=== PATIENT | female | born 1940 | race Caucasian/White ===

== ENCOUNTER 2016-10-26 11:21 | Inpatient (IN) ==
[2016-10-26] MEDS ORDERED: ONDANSETRON 4 MG/2 ML VIAL IV STA (11:57)
[2016-10-26] MEDS ORDERED: MORPHINE 2 MG/1 ML SYRINGE IV STA (11:57)
[2016-10-26] MEDS ORDERED: SODIUM CHLORIDE 0.9% 1,000 ML IV STA (11:57)
--- NOTE | 2016-10-26 12:06 | Emergency Department Note ---
Arrival - Arrival Chief Complaint: Abdominal / Flank Pain Stated Complaint: pancreatitis ED Nursing Triage Note: C/o abd pain radiating through to back-onset 0830 this morning. +nausea. Denies vomiting/diarrhea. Reports pain is similar to episodes of pancreatitis that she has in the past. Mode of Arrival: Ambulatory Limitations: No Limitations Source: Patient, Family, Old Records Reviewed, RN Notes Reviewed Time Seen by Provider: 10/26/16 11:44 - History of Present Illness HPI Narrative: - History of Present Illness 76-year-old white female presents to ED with CC of: Pancreatitis, abdominal pain , nausea, x since 8:30 AM Fever: no Keeping fluids down: Ate breakfast without difficulty, has not had any intake since symptoms started Normal urine output: yes PCP: Dr. Back PMHx: HTN, chronic pancreatitis, history of breast cancer Date of Last Menstrual Period: hysterectomy Allergies/Adverse Reactions: Allergies Allergy/AdvReac Type Severity Reaction Status Date / Time codeine Allergy Unknown/Unable Verified 08/19/16 13:51 to obtain Hydromorphone [From Dilaudid] Allergy UNRESPONSIV Verified 08/19/16 13:51 E levofloxacin Allergy Unknown/Unable Verified 08/19/16 13:51 to obtain meperidine [From Demerol] Allergy UNRESPONSIV Verified 08/19/16 13:51 E Penicillins Allergy Unknown/Unable Verified 08/19/16 13:51 to obtain promethazine [From Phenergan] Allergy UNRESPONSIV Verified 08/19/16 13:51 E Home Medications: Home Medications Medication Instructions Recorded Confirmed Type Lipase/Protease/Amylase [Creon 1 capsule PO TID W/MEALS 09/08/15 10/26/16 History 24,000 Units] Omeprazole 20 mg PO QPM 09/08/15 10/26/16 History Indapamide [Lozol] 1.25 mg PO DAILY 10/26/16 10/26/16 History Review of System - Review of System 12 point system: reviewed and no additional remarkable complaints except as stated - Review of System Gastrointestinal: Present: as per HPI, abdominal pain, nausea. Absent: hematemesis, melena, hematochezia Medical,Surgical,& Family Hx - Medical History Cardio: History of: Hypertension HEENT: History of: Eye Problem (cataracts) Gastrointestinal: History of: Pancreatitis Reproductive: History of: Breast Cancer (left mastectomy) - Surgical History Abdominal Surgeries: Surgical HX of: Abdominal Surgery (pancreatic pseudocyst drained), Cholecystectomy Reproductive Surgeries: Surgical HX of;: Hysterectomy - Family History Family History: Denies;: Family Anesthesia Reaction, Family Cancer, Family Diabetes, Family Heart Disease, Family Hypertension, Family Psychiatric Problems, Family Stroke - Social History Smoking Status: Never smoker Frequency of Alcohol Use: None Type of Drug Use: None Exam Physical Examination: - General General appearance: alert, in no apparent distress - HEENT Present: atraumatic, normocephalic, normal inspection, PERRL, EOMI, mucous membranes moist - Neck Neck exam: Present: normal inspection, full ROM - Respiratory Respiratory exam: Present: normal lung sounds bilaterally - Cardiovascular Cardiovascular exam: Present: regular rate, normal rhythm, normal heart sounds - Abdominal Exam Abdominal exam: Present: soft, tenderness: Yes; LUQ, mild to moderate, normal bowel sounds. Absent: distention, guarding, trauma, - Back Exam Back exam: Present: normal inspection, tenderness to left upper back - Neurological Exam Neurological exam: Present: alert, oriented X3, no neuorosensory deficits - Psychiatric Psychiatric exam: Present: normal affect, normal mood - Skin Skin exam: Present: warm, dry, intact Vital Signs: Vital Signs Temperature 98.1 F 10/26/16 15:35 Pulse Rate 74 10/26/16 15:35 Respiratory Rate 18 10/26/16 15:35 Blood Pressure 152/68 10/26/16 15:35 O2 Sat by Pulse Oximetry 100 10/26/16 15:35 Course - Consultations Time: 13:00 (Dr. Brown; Dr. Quijano will manage the patient.) Time: 13:05 (Hospitalist service notified of pt presence and status. Will come and assess patient.) Time: 13:30 (Hospitalist service here to assess patient. Will admit.) Results - Labs CBC & BMP: 10/26/16 12:01 10/26/16 12:01 Lab Results: I have reviewed the patients labs Labs: Laboratory Tests 10/26/16 12:01 Urine Color Yellow Urine Appearance Slightly hazy Urine pH 5.0 Ur Specific [place] 1.016 Urine Protein Negative Urine Glucose (UA) Negative Urine Ketones Negative Urine Blood Negative Urine Nitrate Negative Urine Bilirubin Negative Urine Urobilinogen < 2.0 H Urine Leukocytes Negative Urine RBC 3 Urine WBC <1 Hyaline Casts 2 Urine Mucus Occasional Ur Culture Indicated? Not indicated Laboratory Tests 10/26/16 12:01 AST 30 ALT 32 Alkaline Phosphatase 61 Lipase 95929.0 H Disposition Clinical Impression: Acute on chronic pancreatitis, Hypokalemia, Pancreatitis, acute Case discussed with: patient, patient's physician Disposition: Still a Patient Condition: Stable Time of Disposition: 13:30
[2016-10-26] MEDS ORDERED: ONDANSETRON 4 MG/2 ML VIAL ONE (12:07)
[2016-10-26] MEDS ORDERED: MORPHINE 2 MG/1 ML SYRINGE ONE (12:07)
[2016-10-26 12:14] LABS: Basophils % 0.1 % (0.0-0.8); Eosinophils % 0.2 % (0.00-10.9); Hematocrit 38.4 VOL% (35.7-47.0); Hemoglobin 13.2 GM/DL (12.0-16.0); Immature Granulocytes % 0.4 %; Immature Granulocytes Absolute 0.06 #; Lymphocytes # 0.9 10*3/uL (1.4-4.0); Mean Corpuscular HGB Conc 34.4 GM/DL (32-36); Mean Corpuscular Hemoglobin 32 PG (27-34); Mean Corpuscular Volume 92.1 FL (87-102); Mean Platelet Volume 10.2 FL (9.6-12.0); Monocytes # 0.4 10*3/uL (0.11-0.8); Monocytes % 2.8 % (1.7-12.7); Neutrophils % 90.5 % (38.7-73.9); Platelet Count 223 T/CUMM (130-400); Red Blood Count 4.17 MC/CUMM (3.8-5.5); Red Cell Distribution Width 12.1 % (9.3-17.3); White Blood Count 14.4 T/CUMM (4-12)
[2016-10-26 12:18] LABS: Apearance,Urine Slightly Hazy (Clear); Bilirubin,Urine Negative (Negative); Blood, Urine Negative (Negative); Glucose,Urine (UA) Negative (Negative); Hyaline Casts,Urine 2 /LPF (0-3); Ketones,Urine Negative (Negative); Mucus,Urine Occasional /LPF (Occasional); Nitrite,Urine Negative (Negative); Protein,Urine Negative; RBC,Urine 3 /HPF (0-4); Urine Color Yellow (Yellow); Urine Specific Gravity 1.016 (1.001-1.035); Urine Urobilinogen < 2.0 EU/DL (0.2-1.0); WBC,Urine <1 /HPF (0-6)
[2016-10-26 12:44] LABS: Albumin 3.9 G/DL (3.4-5.0); Bilirubin,Total 0.4 MG/DL (0.2-1.0); Calcium 9.7 MG/DL (8.5-10.1); Osmolality,Calculated 280.7 MOS/KG (273-304); Potassium 3.3 MMOL/L (3.5-5.1); Total Protein 7.1 G/DL (6.4-8.3)
--- NOTE | 2016-10-26 13:43 | Hospitalist History & Physical ---
<Irina Pritchett - Last Filed: 10/26/16 13:35> Assessment and Plan - Time spent with patient Time spent with patient: Greater than 30 minutes (1) Acute on chronic pancreatitis Status: Acute Assessment and plan: 10/26/16 admit for episode of acute on chronic pancreatitis Amylase 1998 and Lipase 96693.0; order a.m. labs; NPO for bowel rest; IV fluids; pain management ; and nausea medications for management; continue home meds. Current Visit: No (2) Hypokalemia Status: Acute Current Visit: No History of Present Illness Chief complaint: abdominal pain History of present illness: Ms. Herrera is a very pleasant 76 year old white female presenting to Non-Urgent for upper abdominal pain (rate 6/10) that started this morning at 8:30 with associated nausea without vomiting and radiating to her back. 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 Medical hx: Hypertension; Breast cancer; cataracts; family hx: mother HTN; father: HTN, DM; Sister: HTN & DM; Surgical HX; hysterectomy; left breast mastectomy; cholecystectomy; removal of tumor of pancreas; hysterectomy; Multiple allergies: phenergan; codeine; levaquin; codeine; dilaudid; demerol; Never smoked, denies alcohol use. NOn-urgent presentation Labs:WBC 14.4 H&H 13.2 & 38.4; PLT 223; sodium 138; K 3.3; chloride 99; carbon dioxide 32; anion gap 10.3; BUN 21 and creatinine 0.80; glucose 152; CAlcium 9.7; total bilirubin 0.40; AST 30; ALT 32 ; Alkaline phos 61; albumin 3.9; Amylase 1998; Lipase 30881.0; urine negative After discussing with Keshia Ellison in non-urgent care and Dr Mane in Hospitalist medicine; it is in agreement patient will need to be admit and further evaluated. Home Medications Medication Instructions Recorded Confirmed Type Lipase/Protease/Amylase [Creon 1 capsule PO TID W/MEALS 09/08/15 10/26/16 History 24,000 Units] Omeprazole 20 mg PO QPM 09/08/15 10/26/16 History Indapamide [Lozol] 1.25 mg PO DAILY 06/29/17 06/29/17 History Allergies Allergy/AdvReac Type Severity Reaction Status Date / Time codeine Allergy Unknown/Unable Verified 08/19/16 13:51 to obtain Hydromorphone [From Dilaudid] Allergy UNRESPONSIV Verified 08/19/16 13:51 E levofloxacin Allergy Unknown/Unable Verified 08/19/16 13:51 to obtain meperidine [From Demerol] Allergy UNRESPONSIV Verified 08/19/16 13:51 E Penicillins Allergy Unknown/Unable Verified 08/19/16 13:51 to obtain promethazine [From Phenergan] Allergy UNRESPONSIV Verified 08/19/16 13:51 E Medical,Surgical,& Family Hx - Medical History Cardio: History of: Hypertension HEENT: History of: Eye Problem (cataracts) Gastrointestinal: History of: Pancreatitis (Hx: surgical pancreatic tumor removal with develop chronic pancreatitis) Reproductive: History of: Breast Cancer (left mastectomy) - Surgical History Abdominal Surgeries: Surgical HX of: Abdominal Surgery (pancreatic pseudocyst drained), Cholecystectomy Reproductive Surgeries: Surgical HX of;: Hysterectomy - Family History Family History: Denies;: Family Anesthesia Reaction, Family Cancer, Family Diabetes, Family Heart Disease, Family Hypertension, Family Psychiatric Problems, Family Stroke - Social History Smoking Status: Never smoker Frequency of Alcohol Use: None Type of Drug Use: None Review of systems: ROS completed and pertinent positives and negatives in the HPI. Exam - Constitutional Vitals: Period Temp Pulse Resp BP Sys/Jimenez Pulse Ox Last 24 Hr 97.5 F 72 18 166/69 100 General appearance: normal weight - Head Head exam: Present: normal inspection - Eye Eye exam: Present: EOMI Pupils: Present: YI - Neck Neck exam: Present: normal inspection - Respiratory Respiratory exam: Present: clear to auscultation bilaterally - Cardiovascular Cardiovascular exam: Present: regular rate and rhythm - GI/Abdominal GI/Abdominal exam: Present: hypoactive bowel sounds, tenderness (some tenderness with palpitation), soft. Absent: guarding - Extremities Exam Extremities exam: Present: full ROM. Absent: calf tenderness, edema - Neurological Exam Neurological exam: Present: alert, oriented X3, CN II-XII intact - Psychiatric Psychiatric exam: Present: normal affect - Skin Skin exam: Present: normal color, warm, dry Results - Labs CBC & BMP: 10/26/16 12:01 10/26/16 12:01 Lab Results: I have reviewed the past 24 hour labs Labs: WBC 14.4 H&H 13.2 & 38.4 K 3.3 BUN 21 and creatinine 0.80 Amylase 1999 Lipase 47085.0 urine - negative <Izaiah Mane - Last Filed: 10/26/16 14:38> Assessment and Plan (1) Pancreatitis, acute Status: Acute Assessment and plan: Impression: 1. Acute pancreatitis 2. Hypertension Plan: IV fluids and GI rest. The patient probably does not need imaging, as the diagnosis seems obvious. If she does not progress as expected, we might consider imaging and/or GI consultation. For now, I think we can continue current care. She says that she usually requires 2 or 3 days in the hospital, and is then well enough to go home. This note was completed using [employer] voice recognition software. There may be dental laboratory worker errors as a result. Current Visit: Yes Qualifiers: Pancreatitis type: other Acute pancreatitis complication: no infection or necrosis Qualified Code(s): K85.80 - Other acute pancreatitis without necrosis or infection History of Present Illness History of present illness: Ms. 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 She says that the symptoms did not improve, and she does not have any stents in the pancreas currently. She reports that she would have 8 or so episodes of pancreatitis every year, and then she went for about a year and a half with no episodes of pancreatitis until a recurrence about 2 months ago. She says that there are no known precipitating or exacerbating events. She says that she had been working out in her yard for the past 3 days, and then had the typical onset of abdominal pain this morning. She knew what was wrong, so she came to the emergency room. She is now admitted for yet another episode of acute intermittent pancreatitis. She reports that she has had good urine output today. Her bowels move this morning. Exam - Constitutional Vitals: Period Temp Pulse Resp BP Sys/Jimenez Pulse Ox Last 24 Hr 97.5 F-97.7 F 72-75 18-20 166-182/69-69 97-100 Results - Labs CBC & BMP: 10/26/16 12:01 10/26/16 12:01
[2016-10-26] MEDS ORDERED: MORPHINE 2 MG/1 ML SYRINGE IV PRN (13:57)
[2016-10-26] MEDS ORDERED: ONDANSETRON 4 MG/2 ML VIAL IV PRN (13:57)
[2016-10-26] MEDS: SODIUM CHLORIDE 0.9% 1,000 ML IV SCH ×2 (14:44→23:04)
[2016-10-27] MEDS: SODIUM CHLORIDE 0.9% 1,000 ML IV SCH (06:25)
[2016-10-27 06:37] LABS: Basophils % 0.1 % (0.0-0.8); Eosinophils # 0.1 10*3/uL (0.0-0.87); Eosinophils % 1.9 % (0.00-10.9); Hematocrit 32.9 VOL% (35.7-47.0); Hemoglobin 11.1 GM/DL (12.0-16.0); Immature Granulocytes % 0.4 %; Immature Granulocytes Absolute 0.03 #; Lymphocytes # 0.7 10*3/uL (1.4-4.0); Lymphocytes % 9.8 % (21.3-54.2); Mean Corpuscular HGB Conc 33.7 GM/DL (32-36); Mean Corpuscular Hemoglobin 31 PG (27-34); Mean Corpuscular Volume 91.6 FL (87-102); Mean Platelet Volume 10.7 FL (9.6-12.0); Monocytes # 0.4 10*3/uL (0.11-0.8); Monocytes % 5.5 % (1.7-12.7); Neutrophils # 5.7 10*3/uL (1.4-7.4); Neutrophils % 82.3 % (38.7-73.9); Platelet Count 169 T/CUMM (130-400); Red Blood Count 3.59 MC/CUMM (3.8-5.5); Red Cell Distribution Width 12.1 % (9.3-17.3); White Blood Count 6.9 T/CUMM (4-12)
[2016-10-27 07:07] LABS: Bilirubin,Total 0.5 MG/DL (0.2-1.0); Calcium 8.5 MG/DL (8.5-10.1); Osmolality,Calculated 280.1 MOS/KG (273-304); Potassium 3.2 MMOL/L (3.5-5.1); Total Protein 5.5 G/DL (6.4-8.3)
[2016-10-27] MEDS ORDERED: POTASSIUM CHLORIDE RIDER 10 MEQ in PREMIX 1 EACH IV PRN (07:30)
--- NOTE | 2016-10-27 08:24 | Hospitalist Progress Note ---
Assessment and Plan (1) Acute on chronic pancreatitis Status: Acute Assessment and plan: Noted decrease in lipase. Lipase noted today at 4344; noted decrease from admission in which he was noted at 23,297. We will continue fluid replacement, pain management, and bowel rest. Will recheck labs in a.m. Current Visit: Yes (2) Hypokalemia Status: Acute Assessment and plan: Potassium noted at 3.2. We will replace and recheck in a.m. Current Visit: Yes Hospitalist: Subjective Interval history: Patient seen and examined; chart reviewed. No significant overnight events reported. Noted decrease in lipase; lipase noted at 4344 significant improvement from; 23,297 noted at admission. Exam - Constitutional Vitals: Period Temp Pulse Resp BP Sys/Jimenez Pulse Ox Last 24 Hr 97.4 F-98.2 F 63-75 18-20 124-182/62-69 96-100 General appearance: normal weight, no acute distress - Head Head exam: Present: normal inspection, normocephalic - Eye Eye exam: Present: EOMI, conjunctival injection Pupils: Present: YI, normal accommodation - ENT ENT exam: Present: normal exam, normal external ear exam, normal oropharynx - Neck Neck exam: Present: normal inspection. Absent: lymphadenopathy, meningismus, thyromegaly - Respiratory Respiratory exam: Present: clear to auscultation bilaterally. Absent: rales, rhonchi, stridor, wheezes - Cardiovascular Cardiovascular exam: Present: regular rate and rhythm. Absent: carotid bruit, diastolic murmur, gallop, JVD, rubs, systolic murmur - GI/Abdominal GI/Abdominal exam: Present: normal bowel sounds, soft. Absent: tenderness, rebound - Extremities Exam Extremities exam: Present: normal inspection, normal capillary refill, full ROM. Absent: edema - Back Exam Back exam: Present: normal inspection - Neurological Exam Neurological exam: Present: alert, oriented X3, CN II-XII intact - Psychiatric Psychiatric exam: Present: normal affect, normal mood - Skin Skin exam: Present: normal color, warm, dry Results - Labs CBC & BMP: 10/27/16 05:50 10/27/16 05:50 Lab Results: I have reviewed the past 24 hour labs
[2016-10-27 08:56] VITALS: BP 150/66
[2016-10-27] MEDS ORDERED: PANTOPRAZOLE 40 MG VIAL IV SCH (09:00)
[2016-10-27] MEDS: POTASSIUM CHLORIDE 20 MEQ TABLET PO PRN ×2 (09:44→11:53)
--- NOTE | 2016-10-27 11:51 | Discharge Summary ---
Hospital Course - Hospital Course Hospital Course: Ms. 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 She said that the symptoms did not improve, and she does not have any stents in the pancreas currently. She reported that she would have 8 or so episodes of pancreatitis every year, and then she went for about a year and a half with no episodes of pancreatitis until a recurrence about 2 months ago. She said that there are no known precipitating or exacerbating events. She said that she had been working out in her yard for the past 3 days, and then had the typical onset of abdominal pain this morning. She knew what was wrong, so she came to the emergency room. She was admitted to the hospitalist service for acute on chronic pancreatitis. She was started on IV fluids with pain control. This morning the patient is doing much better, her lipase has improved from 07967 to 4344. She is tolerating liquids and is very eager for discharge. She has now reached maximal benefit of inpatient stay and will be discharged home. - Time spent with patient Time with patient DS: Less than 30 minutes (25) Diagnosis - Discharge Diagnosis (1) Acute on chronic pancreatitis Status: Resolved Discharge Plan - Discharge Data Disposition: Disch To Home/Self Care Condition at Discharge: Stable Discharge Diet: advance to your usual diet Activity: increase activity as tolerated Hygiene: no restrictions Weight Bearing at Discharge: weight bear as tolerated Driving: no restrictions Contact your physician if you experience:: fever over 101, pain uncontrolled by pain medications - Discharge Medications Continue Omeprazole 20 mg PO QPM Lipase/Protease/Amylase [Creon 24,000 Units] 1 capsule PO TID W/MEALS Indapamide [Lozol] 1.25 mg PO DAILY - Follow Up or Referral - Forms/Instructions Exam - Constitutional Vitals: Period Temp Pulse Resp BP Sys/Jimenez Pulse Ox Last 24 Hr 97.4 F-98.2 F 63-75 18-20 124-182/62-69 96-100 General appearance: normal weight - Head Head exam: Present: normocephalic, atraumatic - Eye Eye exam: Present: EOMI Pupils: Present: YI - ENT ENT exam: Present: normal exam - Neck Neck exam: Present: normal inspection - Respiratory Respiratory exam: Present: clear to auscultation bilaterally. Absent: rhonchi, wheezes - Cardiovascular Cardiovascular exam: Present: regular rate and rhythm - GI/Abdominal GI/Abdominal exam: Present: normal bowel sounds, soft - Extremities Exam Extremities exam: Present: normal inspection. Absent: edema - Back Exam Back exam: Present: normal inspection - Neurological Exam Neurological exam: Present: alert, oriented X3 - Psychiatric Psychiatric exam: Present: normal affect, normal mood - Skin Skin exam: Present: warm, intact Discharge Results Procedures and tests throughout hospitalization: Pending Orders 10/28/16 04:00 Amylase IN AM CBC [Comp Blood Count Auto Diff] IN AM CMP [Comprehensive Metabolic Panel] IN AM Lipase IN AM Magnesium IN AM Phosphorous IN AM Labs on day of discharge: Labs from last 24 hours 10/27/16 10/27/16 10/27/16 05:50 05:50 05:48 WBC 6.9 D RBC 3.59 L Hgb 11.1 L D Hct 32.9 L MCV 91.6 MCH 31 MCHC 33.7 RDW 12.1 Plt Count 169 D MPV 10.7 Neut % (Auto) 82.3 H Lymph % (Auto) 9.8 L [place] % (Auto) 5.5 Eos % (Auto) 1.9 Baso % (Auto) 0.1 Neut # (Auto) 5.7 Lymph # (Auto) 0.7 L [place] # (Auto) 0.4 Eos # (Auto) 0.1 Baso # (Auto) 0.0 Immature Gran % 0.4 Nucleated RBC % 0.0 Immature Gran # 0.03 Nucleated RBCs # 0.00 Sodium 142 Potassium 3.2 L Chloride 105 Carbon Dioxide 28 Anion Gap 12.2 BUN 11 D Creatinine 0.70 GFR Calculation 79 BUN/Creatinine Ratio 15.00 Glucose 86 Calculated Osmolality 280.1 Calcium 8.5 Total Bilirubin 0.50 AST 21 ALT 24 Alkaline Phosphatase 50 Total Protein 5.5 L Albumin 3.0 L Globulin 2.5 Albumin/Globulin Ratio 1.2 Amylase 687 H Lipase Urine Color Urine Appearance Urine pH Ur Specific [place] Urine Protein Urine Glucose (UA) Urine Ketones Urine Blood Urine Nitrate Urine Bilirubin Urine Urobilinogen Urine Leukocytes Urine RBC Urine WBC Hyaline Casts Urine Mucus Ur Culture Indicated? 10/27/16 10/26/16 10/26/16 05:48 12:01 12:01 WBC RBC Hgb Hct MCV MCH MCHC RDW Plt Count MPV Neut % (Auto) Lymph % (Auto) [place] % (Auto) Eos % (Auto) Baso % (Auto) Neut # (Auto) Lymph # (Auto) [place] # (Auto) Eos # (Auto) Baso # (Auto) Immature Gran % Nucleated RBC % Immature Gran # Nucleated RBCs # Sodium 138 Potassium 3.3 L Chloride 99 Carbon Dioxide 32 Anion Gap 10.3 BUN 21 H Creatinine 0.80 GFR Calculation 67 BUN/Creatinine Ratio 26.00 H Glucose 152 H Calculated Osmolality 280.7 Calcium 9.7 Total Bilirubin 0.40 AST 30 ALT 32 Alkaline Phosphatase 61 Total Protein 7.1 Albumin 3.9 Globulin 3.2 Albumin/Globulin Ratio 1.2 Amylase 1999 H Lipase 4344.0 H D 67007.0 H Urine Color Yellow Urine Appearance Slightly hazy Urine pH 5.0 Ur Specific [place] 1.016 Urine Protein Negative Urine Glucose (UA) Negative Urine Ketones Negative Urine Blood Negative Urine Nitrate Negative Urine Bilirubin Negative Urine Urobilinogen < 2.0 H Urine Leukocytes Negative Urine RBC 3 Urine WBC <1 Hyaline Casts 2 Urine Mucus Occasional Ur Culture Indicated? Not indicated 10/26/16 12:01 WBC 14.4 H RBC 4.17 Hgb 13.2 Hct 38.4 MCV 92.1 MCH 32 MCHC 34.4 RDW 12.1 Plt Count 223 MPV 10.2 Neut % (Auto) 90.5 H Lymph % (Auto) 6.0 L [place] % (Auto) 2.8 Eos % (Auto) 0.2 Baso % (Auto) 0.1 Neut # (Auto) 13.0 H Lymph # (Auto) 0.9 L [place] # (Auto) 0.4 Eos # (Auto) 0.0 Baso # (Auto) 0.0 Immature Gran % 0.4 Nucleated RBC % 0.0 Immature Gran # 0.06 Nucleated RBCs # 0.00 Sodium Potassium Chloride Carbon Dioxide Anion Gap BUN Creatinine GFR Calculation BUN/Creatinine Ratio Glucose Calculated Osmolality Calcium Total Bilirubin AST ALT Alkaline Phosphatase Total Protein Albumin Globulin Albumin/Globulin Ratio Amylase Lipase Urine Color Urine Appearance Urine pH Ur Specific [place] Urine Protein Urine Glucose (UA) Urine Ketones Urine Blood Urine Nitrate Urine Bilirubin Urine Urobilinogen Urine Leukocytes Urine RBC Urine WBC Hyaline Casts Urine Mucus Ur Culture Indicated? DS: Provider Date of admission: 10/26/16 13:09 Primary care physician: Christophe Escobedo DO Attending physician on admission: Izaiah Mane MD Discharging clinician: Kalie Seo MD
== END 2016-10-27 12:07 | disposition home or self-care (01) | DRG 440 ==
LOC: N.ED 11:21 → SUATTDRO 13:09 → N.EDINP 13:09 → N.5E 14:10
PROVIDERS: ADMIT Internal Medicine Geriatric Medicine; ATTEND Internal Medicine

== ENCOUNTER 2017-02-08 13:00 | Inpatient (IN) ==
[2017-02-08] MEDS ORDERED: LEVOFLOXACIN INJ 150 ML IV ONE (13:14)
[2017-02-08] MEDS ORDERED: HYDROmorphone 2 MG/1 ML VIAL IV STA (13:38)
[2017-02-08] MEDS ORDERED: PANTOPRAZOLE 40 MG VIAL IV STA (13:38)
[2017-02-08] MEDS ORDERED: ONDANSETRON 4 MG/2 ML VIAL IV STA (13:38)
[2017-02-08] MEDS ORDERED: SODIUM CHLORIDE 0.9% 1,000 ML IV STA (13:38)
[2017-02-08] MEDS ORDERED: METOCLOPRAMIDE 10 MG/2 ML VIAL IV STA (13:38)
[2017-02-08 14:02] LABS: Basophils % 0.1 % (0.0-0.8); Eosinophils % 0.1 % (0.00-10.9); Hematocrit 41.9 VOL% (35.7-47.0); Hemoglobin 14.5 GM/DL (12.0-16.0); Immature Granulocytes % 0.6 %; Immature Granulocytes Absolute 0.12 #; Lymphocytes # 1.3 10*3/uL (1.4-4.0); Lymphocytes % 6.7 % (21.3-54.2); Mean Corpuscular HGB Conc 34.6 GM/DL (32-36); Mean Corpuscular Hemoglobin 31 PG (27-34); Mean Corpuscular Volume 89.7 FL (87-102); Mean Platelet Volume 10.6 FL (9.6-12.0); Monocytes # 0.5 10*3/uL (0.11-0.8); Monocytes % 2.5 % (1.7-12.7); Neutrophils # 17.5 10*3/uL (1.4-7.4); Platelet Count 242 T/CUMM (130-400); Red Blood Count 4.67 MC/CUMM (3.8-5.5); White Blood Count 19.5 T/CUMM (4-12)
[2017-02-08] MEDS ORDERED: MORPHINE 2 MG/1 ML SYRINGE IV STA ×2 (14:05→15:23)
[2017-02-08 14:06] LABS: Apearance,Urine Slightly Hazy (Clear); Bilirubin,Urine Negative (Negative); Blood, Urine Negative (Negative); Glucose,Urine (UA) 50 mg/dL (Negative); Ketones,Urine 20 mg/dL (Negative); Mucus,Urine Occasional /LPF (Occasional); Nitrite,Urine Negative (Negative); Protein,Urine Negative; RBC,Urine 2 /HPF (0-4); Urine Color Yellow (Yellow); Urine Specific Gravity 1.016 (1.001-1.035); Urine Urobilinogen < 2.0 EU/DL (0.2-1.0); WBC,Urine 1 /HPF (0-6)
[2017-02-08] MEDS ORDERED: ONDANSETRON 4 MG/2 ML VIAL ONE (14:08)
[2017-02-08] MEDS ORDERED: METOCLOPRAMIDE 10 MG/2 ML VIAL ONE (14:08)
[2017-02-08] MEDS ORDERED: PANTOPRAZOLE 40 MG VIAL IV ONE (14:08)
[2017-02-08] MEDS ORDERED: MORPHINE 2 MG/1 ML SYRINGE ONE ×2 (14:09→15:25)
[2017-02-08 14:40] LABS: Alanine Aminotransferase 25 U/L (13-56); Albumin 3.9 G/DL (3.4-5.0); Alkaline Phosphatase 63 U/L (45-117); Amylase 1229 U/L (25-115); Aspartate Amino Transferase 21 U/L (0-37); Blood Urea Nitrogen 22 MG/DL (7-18); Calcium 9.7 MG/DL (8.5-10.1); Glucose 181 MG/DL (74-106); Potassium 3.2 MMOL/L (3.5-5.1); Sodium 136 MMOL/L (136-145); Total Protein 7.2 G/DL (6.4-8.3)
[2017-02-08 14:48] LABS: Lactic Acid 2.8 MMOL/L (0.4-2.0)
[2017-02-08] MEDS ORDERED: AMYLASE PO SCH (17:34)
[2017-02-08] MEDS ORDERED: LIPASE PO SCH (17:34)
[2017-02-08] MEDS ORDERED: PROTEASE PO SCH (17:34)
[2017-02-08] MEDS ORDERED: SODIUM CHLORIDE 0.9% 1,650 ML IV ONE (17:34)
[2017-02-08] MEDS ORDERED: ACETAMINOPHEN 325 MG TABLET PO PRN (17:34)
[2017-02-08] MEDS ORDERED: MORPHINE 2 MG/1 ML SYRINGE IV PRN (18:01)
[2017-02-08] MEDS: ONDANSETRON 4 MG/2 ML VIAL IV PRN (18:06)
[2017-02-08] MEDS: MORPHINE 2 MG/1 ML SYRINGE IV PRN (18:20)
[2017-02-08 20:32] LABS: Triglycerides 32 MG/DL (2-150)
[2017-02-08] MEDS: SODIUM CHLORIDE 0.9% 1,000 ML IV SCH (21:55)
[2017-02-09] MEDS: ONDANSETRON 4 MG/2 ML VIAL IV PRN (02:30)
[2017-02-09] MEDS: MORPHINE 2 MG/1 ML SYRINGE IV PRN (02:32)
[2017-02-09 06:47] LABS: Basophils % 0.1 % (0.0-0.8); Eosinophils % 0.1 % (0.00-10.9); Hematocrit 41.1 VOL% (35.7-47.0); Hemoglobin 14.3 GM/DL (12.0-16.0); Immature Granulocytes % 0.9 %; Immature Granulocytes Absolute 0.14 #; Lymphocytes % 6.5 % (21.3-54.2); Mean Corpuscular HGB Conc 34.8 GM/DL (32-36); Mean Corpuscular Hemoglobin 31 PG (27-34); Mean Corpuscular Volume 89.3 FL (87-102); Mean Platelet Volume 10.9 FL (9.6-12.0); Monocytes # 0.8 10*3/uL (0.11-0.8); Monocytes % 5.4 % (1.7-12.7); Neutrophils # 13.2 10*3/uL (1.4-7.4); Platelet Count 207 T/CUMM (130-400); White Blood Count 15.2 T/CUMM (4-12)
[2017-02-09 07:22] LABS: Osmolality,Calculated 275.8 MOS/KG (273-304); Potassium 3.2 MMOL/L (3.5-5.1)
[2017-02-09 07:32] LABS: Giant Platelets Few; Hypochromasia 2+; Lymphocytes 1 % (20-55); Macrocytosis 1+; Platelet Estimate Adequate; Segmented Neutrophils 92 % (50-85); Total Cells Counted 100
[2017-02-09] MEDS: PANTOPRAZOLE 40 MG VIAL IV SCH (09:45)
[2017-02-09] MEDS: SODIUM CHLORIDE 0.9% 1,000 ML IV SCH ×2 (09:45→17:11)
[2017-02-09] MEDS: INDAPAMIDE 2.5 MG TABLET PO SCH (09:46)
[2017-02-09] MEDS ORDERED: hydrALAZINE 20 MG/1 ML VIAL IV PRN (17:24)
[2017-02-10] MEDS: SODIUM CHLORIDE 0.9% 1,000 ML IV SCH (01:22)
[2017-02-10 04:13] LABS: Basophils % 0.1 % (0.0-0.8); Eosinophils # 0.1 10*3/uL (0.0-0.87); Eosinophils % 0.4 % (0.00-10.9); Hematocrit 38.2 VOL% (35.7-47.0); Hemoglobin 13.3 GM/DL (12.0-16.0); Immature Granulocytes % 0.4 %; Immature Granulocytes Absolute 0.06 #; Lymphocytes % 7.6 % (21.3-54.2); Mean Corpuscular HGB Conc 34.8 GM/DL (32-36); Mean Corpuscular Hemoglobin 31 PG (27-34); Mean Platelet Volume 10.7 FL (9.6-12.0); Monocytes # 0.7 10*3/uL (0.11-0.8); Monocytes % 4.9 % (1.7-12.7); Neutrophils # 11.7 10*3/uL (1.4-7.4); Neutrophils % 86.6 % (38.7-73.9); Platelet Count 171 T/CUMM (130-400); Red Blood Count 4.29 MC/CUMM (3.8-5.5); Red Cell Distribution Width 12.2 % (9.3-17.3); White Blood Count 13.5 T/CUMM (4-12)
[2017-02-10 04:25] LABS: Calcium 8.5 MG/DL (8.5-10.1); Osmolality,Calculated 274.5 MOS/KG (273-304); Potassium 2.7 MMOL/L (3.5-5.1)
[2017-02-10] MEDS ORDERED: POTASSIUM CHLORIDE 20 MEQ TABLET PO ONE ×2 (08:15→09:47)
[2017-02-10] MEDS ORDERED: LACTATED RINGERS 1,000 ML IV SCH (08:30)
[2017-02-10] MEDS ORDERED: POTASSIUM CHLORIDE RIDER 10 MEQ in PREMIX 1 EACH IV SCH (09:30)
[2017-02-10] MEDS: PANTOPRAZOLE 40 MG VIAL IV SCH (10:03)
[2017-02-10] MEDS: INDAPAMIDE 2.5 MG TABLET PO SCH (10:03)
[2017-02-10] MEDS: POTASSIUM CHLORIDE RIDER 10 MEQ in PREMIX 1 EACH IV SCH ×2 (11:19→13:02)
[2017-02-10 12:38] VITALS: BP 150/76
== END 2017-02-10 15:37 | disposition home or self-care (01) | DRG 871 ==
LOC: N.ED 13:00 → N.EDINP 15:28 → N.2E 17:34
PROVIDERS: ADMIT Family Medicine; ATTEND Family Medicine

== ENCOUNTER 2018-04-17 12:38 | Inpatient (IN) ==
[2018-04-17] MEDS ORDERED: ONDANSETRON 4 MG/2 ML VIAL IV PRN (15:29)
[2018-04-17] MEDS ORDERED: MORPHINE 4 MG/1 ML VIAL IV PRN (15:29)
[2018-04-17] MEDS ORDERED: ACETAMINOPHEN 325 MG TABLET PO PRN (15:29)
[2018-04-17] MEDS: SODIUM CHLORIDE 0.9% 1,000 ML IV SCH ×2 (15:53→23:57)
[2018-04-18 06:24] LABS: Basophils % 0.3 % (0.0-0.8); Eosinophils # 0.2 10*3/uL (0.0-0.87); Eosinophils % 3.7 % (0.00-10.9); Hemoglobin 11.3 GM/DL (12.0-16.0); Immature Granulocytes % 0.5 %; Immature Granulocytes Absolute 0.03 #; Lymphocytes # 0.8 10*3/uL (1.4-4.0); Lymphocytes % 12.4 % (21.3-54.2); Mean Corpuscular HGB Conc 33.2 GM/DL (32-36); Mean Corpuscular Hemoglobin 32 PG (27-34); Mean Platelet Volume 10.4 FL (9.6-12.0); Monocytes # 0.4 10*3/uL (0.11-0.8); Monocytes % 6.6 % (1.7-12.7); Neutrophils % 76.5 % (38.7-73.9); Platelet Count 154 T/CUMM (130-400); Red Blood Count 3.54 MC/CUMM (3.8-5.5); Red Cell Distribution Width 11.8 % (9.3-17.3); White Blood Count 6.5 T/CUMM (4-12)
[2018-04-18 06:45] LABS: Albumin 2.7 G/DL (3.4-5.0); Bilirubin,Total 1.1 MG/DL (0.2-1.0); Calcium 8.6 MG/DL (8.5-10.1); Osmolality,Calculated 281.3 MOS/KG (273-304); Potassium 4.3 MMOL/L (3.5-5.1); Total Protein 5.7 G/DL (6.4-8.3)
[2018-04-18] MEDS: SODIUM CHLORIDE 0.9% 1,000 ML IV SCH ×2 (07:50→15:50)
[2018-04-18] MEDS: amLODIPine 2.5 MG TABLET PO SCH (10:02)
[2018-04-18] MEDS: PANTOPRAZOLE 40 MG VIAL IV SCH (10:02)
[2018-04-19] MEDS: SODIUM CHLORIDE 0.9% 1,000 ML IV SCH (05:12)
[2018-04-19 05:53] LABS: Basophils % 0.4 % (0.0-0.8); Eosinophils # 0.3 10*3/uL (0.0-0.87); Eosinophils % 5.9 % (0.00-10.9); Hematocrit 34.5 VOL% (35.7-47.0); Hemoglobin 11.1 GM/DL (12.0-16.0); Immature Granulocytes % 0.2 %; Immature Granulocytes Absolute 0.01 #; Lymphocytes % 18.6 % (21.3-54.2); Mean Corpuscular HGB Conc 32.2 GM/DL (32-36); Mean Corpuscular Hemoglobin 31 PG (27-34); Mean Platelet Volume 10.6 FL (9.6-12.0); Monocytes # 0.3 10*3/uL (0.11-0.8); Monocytes % 6.1 % (1.7-12.7); Neutrophils # 3.7 10*3/uL (1.4-7.4); Neutrophils % 68.8 % (38.7-73.9); Platelet Count 140 T/CUMM (130-400); Red Blood Count 3.63 MC/CUMM (3.8-5.5); Red Cell Distribution Width 11.7 % (9.3-17.3); White Blood Count 5.4 T/CUMM (4-12)
[2018-04-19 06:24] LABS: Calcium 8.5 MG/DL (8.5-10.1); Osmolality,Calculated 278.3 MOS/KG (273-304); Potassium 3.7 MMOL/L (3.5-5.1)
[2018-04-19 07:36] VITALS: BP 151/75
[2018-04-19] MEDS: amLODIPine 2.5 MG TABLET PO SCH (08:17)
[2018-04-19] MEDS: PANTOPRAZOLE 40 MG VIAL IV SCH (08:17)
== END 2018-04-19 10:05 | disposition home or self-care (01) | DRG 440 ==
LOC: N.5E → SUATTDRO 14:10
PROVIDERS: ADMIT Internal Medicine; ATTEND Internal Medicine

== ENCOUNTER 2019-07-26 13:04 | Inpatient (IN) ==
[2019-07-26] MEDS ORDERED: MORPHINE 4 MG/1 ML VIAL IV STA ×2 (13:55→15:02)
[2019-07-26] MEDS ORDERED: ONDANSETRON 4 MG/2 ML VIAL IV STA (13:55)
[2019-07-26] MEDS ORDERED: SODIUM CHLORIDE 0.9% 1,000 ML IV STA (13:55)
[2019-07-26 14:02] LABS: Basophils % 0.2 % (0.0-0.8); Eosinophils # 0.1 10*3/uL (0.0-0.87); Eosinophils % 0.4 % (0.00-10.9); Hematocrit 41.8 VOL% (35.7-47.0); Immature Granulocytes % 0.5 %; Immature Granulocytes Absolute 0.07 #; Lymphocytes # 2.1 10*3/uL (1.4-4.0); Lymphocytes % 13.5 % (21.3-54.2); Mean Corpuscular HGB Conc 33.5 GM/DL (32-36); Mean Corpuscular Volume 95.2 FL (87-102); Mean Platelet Volume 10.3 FL (9.6-12.0); Monocytes % 3.8 % (1.7-12.7); Neutrophils % 81.6 % (38.7-73.9); Platelet Count 201 T/CUMM (130-400); Red Blood Count 4.39 MC/CUMM (3.8-5.5); Red Cell Distribution Width 11.8 % (9.3-17.3); White Blood Count 15.2 T/CUMM (4-12)
[2019-07-26 14:19] LABS: Albumin 3.7 G/DL (3.4-5.0); Bilirubin,Total 0.4 MG/DL (0.2-1.0); Calcium 9.8 MG/DL (8.5-10.1); Osmolality,Calculated 274.4 MOS/KG (273-304); Total Protein 6.9 G/DL (6.4-8.3)
[2019-07-26 16:18] LABS: Apearance,Urine CLEAR (Clear); Bacteria,Urine Occasional /HPF (Few); Bilirubin,Urine Negative (Negative); Blood, Urine Negative (Negative); Glucose,Urine (UA) Negative (Negative); Hyaline Casts,Urine 24 /LPF (0-3); Ketones,Urine 5 mg/dL (Negative); Mucus,Urine Occasional /LPF (Occasional); Nitrite,Urine Negative (Negative); Protein,Urine Negative; RBC,Urine 2 /HPF (0-4); Urine Color Yellow (Yellow); Urine Specific Gravity 1.017 (1.001-1.035); Urine Urobilinogen < 2.0 EU/DL (0.2-1.0); WBC,Urine 1 /HPF (0-6)
[2019-07-26] MEDS ORDERED: ONDANSETRON 4 MG/2 ML VIAL IV PRN (16:24)
[2019-07-26] MEDS ORDERED: ACETAMINOPHEN 325 MG TABLET PO PRN (16:30)
[2019-07-26] MEDS ORDERED: MORPHINE 4 MG/1 ML VIAL IV PRN (19:21)
[2019-07-26] MEDS: SODIUM CHLORIDE 0.9% 1,000 ML IV SCH (20:24)
[2019-07-26] MEDS: ENOXAPARIN 40 MG/0.4 ML SYRINGE SUBCUT SCH (20:44)
[2019-07-27 05:20] LABS: Basophils % 0.1 % (0.0-0.8); Eosinophils % 0.3 % (0.00-10.9); Hematocrit 36.8 VOL% (35.7-47.0); Hemoglobin 12.4 GM/DL (12.0-16.0); Immature Granulocytes % 0.4 %; Immature Granulocytes Absolute 0.05 #; Lymphocytes # 1.6 10*3/uL (1.4-4.0); Lymphocytes % 13.4 % (21.3-54.2); Mean Corpuscular HGB Conc 33.7 GM/DL (32-36); Mean Corpuscular Volume 93.2 FL (87-102); Mean Platelet Volume 10.7 FL (9.6-12.0); Monocytes % 5.4 % (1.7-12.7); Neutrophils % 80.4 % (38.7-73.9); Platelet Count 178 T/CUMM (130-400); Red Blood Count 3.95 MC/CUMM (3.8-5.5); Red Cell Distribution Width 11.8 % (9.3-17.3); White Blood Count 11.9 T/CUMM (4-12)
[2019-07-27 05:36] LABS: Albumin 3.3 G/DL (3.4-5.0); Bilirubin,Total 0.6 MG/DL (0.2-1.0); Calcium 8.9 MG/DL (8.5-10.1); Osmolality,Calculated 272.1 MOS/KG (273-304); Total Protein 6.3 G/DL (6.4-8.3)
[2019-07-27] MEDS: SODIUM CHLORIDE 0.9% 1,000 ML IV SCH ×2 (06:15→16:18)
[2019-07-27] MEDS: ENOXAPARIN 40 MG/0.4 ML SYRINGE SUBCUT SCH (21:27)
[2019-07-28] MEDS: INDAPAMIDE 2.5 MG TABLET PO SCH ×2 (02:16→09:00)
[2019-07-28] MEDS: SODIUM CHLORIDE 0.9% 1,000 ML IV SCH (05:54)
[2019-07-28 07:29] VITALS: BP 155/85
== END 2019-07-28 10:13 | disposition home or self-care (01) | DRG 440 ==
LOC: N.ED 13:04 → SUATTDRO 16:24 → N.EDINP 16:24 → N.5E 19:34
PROVIDERS: ADMIT Internal Medicine; ATTEND Internal Medicine Geriatric Medicine

== ENCOUNTER 2020-04-05 17:10 | Inpatient (IN) ==
[2020-04-06] MEDS ORDERED: SODIUM CHLORIDE 0.9% 1,000 ML IV STA (03:01)
[2020-04-06] MEDS ORDERED: MORPHINE 4 MG/1 ML VIAL IV STA (03:01)
[2020-04-06] MEDS ORDERED: ONDANSETRON 4 MG/2 ML VIAL IV STA (03:01)
[2020-04-06] MEDS ORDERED: PANTOPRAZOLE 40 MG VIAL IV STA (03:01)
[2020-04-06 03:26] LABS: Basophils % 0.2 % (0.0-0.8); Hematocrit 44.3 VOL% (35.7-47.0); Hemoglobin 15.3 GM/DL (12.0-16.0); Immature Granulocytes % 0.3 %; Immature Granulocytes Absolute 0.06 #; Lymphocytes # 3.4 10*3/uL (1.4-4.0); Lymphocytes % 19.2 % (21.3-54.2); Mean Corpuscular HGB Conc 34.5 GM/DL (32-36); Mean Corpuscular Volume 91.5 FL (87-102); Mean Platelet Volume 9.9 FL (9.6-12.0); Monocytes % 3.7 % (1.7-12.7); Neutrophils % 76.6 % (38.7-73.9); Platelet Count 235 T/CUMM (130-400); Red Blood Count 4.84 MC/CUMM (3.8-5.5); Red Cell Distribution Width 11.9 % (9.3-17.3); White Blood Count 17.7 T/CUMM (4-12)
[2020-04-06 03:58] LABS: Albumin 4.1 G/DL (3.4-5.0); Bilirubin,Total 0.5 MG/DL (0.2-1.0); Calcium 10.6 MG/DL (8.5-10.1); Osmolality,Calculated 278.4 MOS/KG (273-304); Total Protein 7.8 G/DL (6.4-8.3)
[2020-04-06 04:02] LABS: Amylase 1134 U/L (25-115)
[2020-04-06] MEDS ORDERED: MORPHINE 4 MG/1 ML VIAL IV PRN ×2 (04:44→08:47)
[2020-04-06] MEDS ORDERED: ONDANSETRON 4 MG/2 ML VIAL IV PRN (04:49)
[2020-04-06] MEDS ORDERED: hydrALAZINE 20 MG/1 ML VIAL IV PRN (04:50)
[2020-04-06 05:11] LABS: Bilirubin,Urine Negative (Negative); Blood, Urine Small mg/dL (Negative); Glucose,Urine (UA) 50 mg/dL (Negative); Hyaline Casts,Urine 1 /LPF (0-3); Ketones,Urine Negative (Negative); Mucus,Urine Occasional /LPF (Occasional); Nitrite,Urine Negative (Negative); Protein,Urine Negative; RBC,Urine 4 /HPF (0-4); Squamous Epithelial Cell,Urine Occasional /HPF (0-10); Urine Appearance CLEAR (Clear); Urine Color Yellow (Yellow); Urine Specific Gravity 1.042 (1.001-1.035); Urine Urobilinogen < 2.0 EU/DL (0.2-1.0); WBC,Urine 1 /HPF (0-6)
[2020-04-06] MEDS: SODIUM CHLORIDE 0.9% 1,000 ML IV SCH ×4 (05:24→21:05)
[2020-04-06] MEDS: ENOXAPARIN 40 MG/0.4 ML SYRINGE SUBCUT SCH (08:40)
[2020-04-06] MEDS: amLODIPine 10 MG TABLET PO SCH (10:31)
[2020-04-07 06:05] LABS: Basophils % 0.1 % (0.0-0.8); Eosinophils % 0.1 % (0.00-10.9); Hematocrit 36.2 VOL% (35.7-47.0); Immature Granulocytes % 0.5 %; Immature Granulocytes Absolute 0.07 #; Mean Corpuscular HGB Conc 34.5 GM/DL (32-36); Mean Corpuscular Volume 93.1 FL (87-102); Mean Platelet Volume 10.2 FL (9.6-12.0); Monocytes % 4.4 % (1.7-12.7); Neutrophils % 81.9 % (38.7-73.9); Red Blood Count 3.89 MC/CUMM (3.8-5.5); Red Cell Distribution Width 12.2 % (9.3-17.3); White Blood Count 15.1 T/CUMM (4-12)
[2020-04-07 06:31] LABS: Albumin 2.7 G/DL (3.4-5.0); Bilirubin,Total 0.9 MG/DL (0.2-1.0); Osmolality,Calculated 274.7 MOS/KG (273-304); Total Protein 5.9 G/DL (6.4-8.3)
[2020-04-07 06:40] LABS: Hemoglobin 12.5 GM/DL (12.0-16.0); Platelet Count 144 T/CUMM (130-400)
[2020-04-07] MEDS: SODIUM CHLORIDE 0.9% 1,000 ML IV SCH ×3 (07:07→20:56)
[2020-04-07] MEDS ORDERED: POTASSIUM CHLORIDE 20 MEQ TABLET PO PRN (08:04)
[2020-04-07] MEDS: PANTOPRAZOLE 40 MG VIAL IV SCH (09:02)
[2020-04-07] MEDS: ENOXAPARIN 40 MG/0.4 ML SYRINGE SUBCUT SCH (09:02)
[2020-04-07] MEDS: amLODIPine 10 MG TABLET PO SCH (09:02)
[2020-04-07] MEDS ORDERED: POTASSIUM CHLORIDE 20 MEQ PACK PO ONE (09:23)
[2020-04-07] MEDS: POTASSIUM CHLORIDE RIDER 10 MEQ in PREMIX 1 EACH IV PRN ×5 (13:25→17:53)
[2020-04-07] MEDS ORDERED: ACETAMINOPHEN 325 MG TABLET PO PRN (13:28)
[2020-04-07] MEDS ORDERED: diphenhydrAMINE CAP 25 MG CAPSULE PO PRN (13:28)
[2020-04-08 05:54] LABS: Basophils % 0.2 % (0.0-0.8); Eosinophils % 0.3 % (0.00-10.9); Hematocrit 33.6 VOL% (35.7-47.0); Hemoglobin 11.3 GM/DL (12.0-16.0); Immature Granulocytes % 0.4 %; Immature Granulocytes Absolute 0.05 #; Lymphocytes # 1.5 10*3/uL (1.4-4.0); Lymphocytes % 13.5 % (21.3-54.2); Mean Corpuscular HGB Conc 33.6 GM/DL (32-36); Mean Corpuscular Volume 95.2 FL (87-102); Mean Platelet Volume 10.7 FL (9.6-12.0); Monocytes % 6.5 % (1.7-12.7); Neutrophils % 79.1 % (38.7-73.9); Platelet Count 128 T/CUMM (130-400); Red Blood Count 3.53 MC/CUMM (3.8-5.5); Red Cell Distribution Width 11.9 % (9.3-17.3); White Blood Count 11.2 T/CUMM (4-12)
[2020-04-08 06:14] LABS: Calcium 8.2 MG/DL (8.5-10.1); Osmolality,Calculated 272.7 MOS/KG (273-304)
[2020-04-08] MEDS: SODIUM CHLORIDE 0.9% 1,000 ML IV SCH (06:18)
[2020-04-08 07:18] VITALS: BP 139/54
[2020-04-08] MEDS: PANTOPRAZOLE 40 MG VIAL IV SCH (08:29)
[2020-04-08] MEDS: amLODIPine 10 MG TABLET PO SCH (08:29)
[2020-04-08] MEDS: ENOXAPARIN 40 MG/0.4 ML SYRINGE SUBCUT SCH (08:31)
== END 2020-04-08 10:21 | disposition home or self-care (01) | DRG 439 ==
LOC: N.ED 17:10 → SUATTDRO 04-06 04:44 → N.EDINP 04-06 04:44 → N.5E 04-06 08:46
PROVIDERS: ADMIT Internal Medicine; ATTEND Internal Medicine

== ENCOUNTER 2022-05-05 18:21 | Observation (INO) ==
[2022-05-05] MEDS ORDERED: SODIUM CHLORIDE 0.9% 1,000 ML IV STA ×2 (20:56→21:01)
[2022-05-05 21:19] LABS: Basophils % 0.1 % (0.0-0.8); Eosinophils % 0.1 % (0.00-10.9); Hematocrit 37.4 VOL% (35.7-47.0); Hemoglobin 12.4 GM/DL (12.0-16.0); Immature Granulocytes % 0.6 %; Immature Granulocytes Absolute 0.08 #; Lymphocytes # 2.3 10*3/uL (1.4-4.0); Lymphocytes % 15.7 % (21.3-54.2); Mean Corpuscular HGB Conc 33.2 GM/DL (32-36); Mean Corpuscular Volume 93.7 FL (87-102); Mean Platelet Volume 9.4 FL (9.6-12.0); Monocytes # 0.6 10*3/uL (0.11-0.8); Monocytes % 3.9 % (1.7-12.7); Neutrophils % 79.6 % (38.7-73.9); Platelet Count 235 T/CUMM (130-400); Red Blood Count 3.99 MC/CUMM (3.8-5.5); Red Cell Distribution Width 11.8 % (9.3-17.3); White Blood Count 14.5 T/CUMM (4-12)
[2022-05-05 21:35] LABS: Urine Appearance Clear (Clear); Urine Color Yellow (Yellow)
[2022-05-05 21:36] LABS: Glucose,Urine (UA) Negative (Negative); Ketones,Urine Negative (Negative); Nitrite,Urine Negative (Negative); Protein,Urine Negative (Negative); Urine Specific Gravity 1.025 (1.001-1.035)
[2022-05-05 21:37] LABS: Bilirubin,Urine Negative (Negative); Blood, Urine Negative (Negative); Urine Urobilinogen 0.2 eU/dL (<2.0)
[2022-05-05 21:40] LABS: Hyaline Casts,Urine 4 /LPF (0-3); Mucus,Urine Occasional /LPF (Occasional); RBC,Urine 2 /HPF (0-4); Squamous Epithelial Cell,Urine Occasional /HPF (0-10)
[2022-05-05 21:45] LABS: Albumin 3.5 G/DL (3.4-5.0); Bilirubin,Total 0.4 MG/DL (0.20-1.00); Calcium 9.8 MG/DL (8.5-10.1); Osmolality,Calculated 273.2 MOS/KG (273-304); Potassium 4.1 MMOL/L (3.5-5.1); Total Protein 6.9 G/DL (6.4-8.2)
[2022-05-05] MEDS ORDERED: hydrALAZINE 20 MG/1 ML VIAL IV PRN (23:06)
[2022-05-05] MEDS ORDERED: GLUCAGON 1 MG VIAL IM PRN (23:06)
[2022-05-05] MEDS ORDERED: ONDANSETRON 4 MG/2 ML VIAL IV PRN (23:06)
[2022-05-05 23:08] LABS: Hepatitis B Core IgM Quant < 0.05 Index; Hepatitis B Surface Ag Quant < 0.10 Index; Hepatitis B Surface Ag Result Non-Reactive (NonReactive); Hepatitis C Virus Ab Quant < 0.02 Index; Hepatitis C Virus Ab Result Non-Reactive (NonReactive)
[2022-05-05] MEDS ORDERED: DEXTROSE 10% 250 ML BAG IV PRN (23:17)
[2022-05-05 23:31] LABS: Risk Ratio 2.69
[2022-05-06 00:20] LABS: PT Patient Result 10.9 SECS (10.1-12.1); Partial Thromboplastin Time 21.3 SECS (23.7-32.9)
[2022-05-06] MEDS ORDERED: MORPHINE 2 MG/1 ML SYRINGE IV PRN ×2 (00:24→02:04)
[2022-05-06] MEDS: SODIUM CHLORIDE 0.9% 1,000 ML IV SCH ×2 (01:08→13:46)
[2022-05-06 07:15] LABS: Basophils % 0.1 % (0.0-0.8); Eosinophils # 0.1 10*3/uL (0.0-0.87); Hematocrit 31.4 VOL% (35.7-47.0); Hemoglobin 10.4 GM/DL (12.0-16.0); Immature Granulocytes % 0.2 %; Immature Granulocytes Absolute 0.02 #; Lymphocytes # 1.9 10*3/uL (1.4-4.0); Lymphocytes % 20.2 % (21.3-54.2); Mean Corpuscular HGB Conc 33.1 GM/DL (32-36); Mean Corpuscular Volume 93.7 FL (87-102); Mean Platelet Volume 9.8 FL (9.6-12.0); Monocytes # 0.6 10*3/uL (0.11-0.8); Monocytes % 6.7 % (1.7-12.7); Neutrophils % 71.8 % (38.7-73.9); Platelet Count 211 T/CUMM (130-400); Red Blood Count 3.35 MC/CUMM (3.8-5.5); Red Cell Distribution Width 11.9 % (9.3-17.3); White Blood Count 9.3 T/CUMM (4-12)
[2022-05-06 07:37] LABS: Alanine Aminotransferase 175 U/L (13-56); Albumin 2.8 G/DL (3.4-5.0); Alkaline Phosphatase 176 U/L (45-117); Aspartate Amino Transferase 142 U/L (0-37); Bilirubin,Total < 0.39 MG/DL (0.20-1.00); Blood Urea Nitrogen 13 MG/DL (7-18); Calcium 8.9 MG/DL (8.5-10.1); Carbon Dioxide 31 MMOL/L (21-32); Chloride 104 MMOL/L (98-107); Glucose 104 MG/DL (74-106); Osmolality,Calculated 274.7 MOS/KG (273-304); Potassium 3.7 MMOL/L (3.5-5.1); Sodium 138 MMOL/L (136-145); Total Protein 5.8 G/DL (6.4-8.2)
[2022-05-06] MEDS: INSULIN LISPRO 100 UNIT/ML SUBCUT SCH ×2 (07:45→12:31)
[2022-05-06] MEDS: PANTOPRAZOLE 40 MG TABLET PO SCH (09:18)
[2022-05-06] MEDS: METOPROLOL SUCCINATE XL 25 MG TABLET PO SCH ×2 (09:18→20:56)
[2022-05-06] MEDS: INDAPAMIDE 2.5 MG TABLET PO SCH (09:18)
[2022-05-06] MEDS: ENOXAPARIN 40 MG/0.4 ML SYRINGE SUBCUT SCH (09:19)
[2022-05-07 04:46] LABS: Basophils % 0.2 % (0.0-0.8); Eosinophils # 0.2 10*3/uL (0.0-0.87); Eosinophils % 4.3 % (0.00-10.9); Hemoglobin 10.4 GM/DL (12.0-16.0); Immature Granulocytes % 0.2 %; Immature Granulocytes Absolute 0.01 #; Lymphocytes # 1.5 10*3/uL (1.4-4.0); Lymphocytes % 28.2 % (21.3-54.2); Mean Corpuscular HGB Conc 32.5 GM/DL (32-36); Mean Corpuscular Volume 94.4 FL (87-102); Mean Platelet Volume 9.9 FL (9.6-12.0); Monocytes # 0.4 10*3/uL (0.11-0.8); Monocytes % 8.3 % (1.7-12.7); Neutrophils % 58.8 % (38.7-73.9); Platelet Count 190 T/CUMM (130-400); Red Blood Count 3.39 MC/CUMM (3.8-5.5); White Blood Count 5.2 T/CUMM (4-12)
[2022-05-07 05:09] LABS: Albumin 2.7 G/DL (3.4-5.0); Bilirubin,Total 0.4 MG/DL (0.20-1.00); Calcium 8.9 MG/DL (8.5-10.1); Osmolality,Calculated 271.8 MOS/KG (273-304); Potassium 3.3 MMOL/L (3.5-5.1); Total Protein 5.8 G/DL (6.4-8.2)
[2022-05-07] MEDS: INDAPAMIDE 2.5 MG TABLET PO SCH (08:14)
[2022-05-07] MEDS: METOPROLOL SUCCINATE XL 25 MG TABLET PO SCH (08:14)
[2022-05-07] MEDS: PANTOPRAZOLE 40 MG TABLET PO SCH (08:14)
[2022-05-07] MEDS ORDERED: POTASSIUM CHLORIDE 20 MEQ TABLET PO ONE (08:17)
[2022-05-07] MEDS: ENOXAPARIN 40 MG/0.4 ML SYRINGE SUBCUT SCH (08:18)
[2022-05-07 13:04] VITALS: BP 153/71
== END 2022-05-07 13:08 | disposition home or self-care (01) ==
LOC: N.ED 18:21 → N.EDINP 18:21 → SUATTDRO 23:02 → N.2E 05-06
PROVIDERS: ADMIT Emergency Medicine; ATTEND Family Medicine

== ENCOUNTER 2022-05-07 17:02 | Observation (INO) ==
[2022-05-07] MEDS ORDERED: hydrALAZINE 20 MG/1 ML VIAL IV STA (17:54)
[2022-05-07] MEDS ORDERED: ONDANSETRON 4 MG/2 ML VIAL IV PRN (18:18)
[2022-05-07] MEDS ORDERED: ACETAMINOPHEN 325 MG TABLET PO PRN (18:18)
[2022-05-07] MEDS ORDERED: hydrALAZINE 20 MG/1 ML VIAL IV PRN (18:18)
[2022-05-07] MEDS ORDERED: MORPHINE 2 MG/1 ML SYRINGE IV PRN (18:18)
[2022-05-07] MEDS: METOPROLOL SUCCINATE XL 25 MG TABLET PO SCH (23:08)
[2022-05-07] MEDS: LACTATED RINGERS 1,000 ML IV SCH (23:09)
[2022-05-08 06:07] LABS: Basophils % 0.2 % (0.0-0.8); Eosinophils # 0.2 10*3/uL (0.0-0.87); Eosinophils % 3.4 % (0.00-10.9); Hematocrit 30.3 VOL% (35.7-47.0); Immature Granulocytes % 0.2 %; Immature Granulocytes Absolute 0.01 #; Lymphocytes # 1.3 10*3/uL (1.4-4.0); Lymphocytes % 23.9 % (21.3-54.2); Mean Corpuscular Volume 93.5 FL (87-102); Mean Platelet Volume 9.8 FL (9.6-12.0); Monocytes # 0.5 10*3/uL (0.11-0.8); Monocytes % 9.1 % (1.7-12.7); Neutrophils % 63.2 % (38.7-73.9); Platelet Count 193 T/CUMM (130-400); Red Blood Count 3.24 MC/CUMM (3.8-5.5); Red Cell Distribution Width 11.9 % (9.3-17.3); White Blood Count 5.3 T/CUMM (4-12)
[2022-05-08 06:43] LABS: Albumin 2.7 G/DL (3.4-5.0); Bilirubin,Total 0.4 MG/DL (0.20-1.00); Calcium 9.1 MG/DL (8.5-10.1); Osmolality,Calculated 272.7 MOS/KG (273-304); Potassium 3.6 MMOL/L (3.5-5.1); Total Protein 5.8 G/DL (6.4-8.2)
[2022-05-08] MEDS: LACTATED RINGERS 1,000 ML IV SCH ×2 (07:53→17:51)
[2022-05-08] MEDS ORDERED: ENOXAPARIN 40 MG/0.4 ML SYRINGE SUBCUT SCH (09:00)
[2022-05-08] MEDS: PANTOPRAZOLE 40 MG VIAL IV SCH (09:08)
[2022-05-08] MEDS: INDAPAMIDE 2.5 MG TABLET PO SCH (09:08)
[2022-05-08] MEDS: METOPROLOL SUCCINATE XL 25 MG TABLET PO SCH ×2 (09:08→20:00)
[2022-05-09] MEDS: LACTATED RINGERS 1,000 ML IV SCH ×2 (02:45→13:27)
[2022-05-09 05:21] LABS: Albumin 2.6 G/DL (3.4-5.0); Bilirubin,Total 0.4 MG/DL (0.20-1.00); Calcium 8.9 MG/DL (8.5-10.1); Osmolality,Calculated 273.5 MOS/KG (273-304); Potassium 3.4 MMOL/L (3.5-5.1); Total Protein 5.8 G/DL (6.4-8.2)
[2022-05-09] MEDS ORDERED: LACTATED RINGERS 1,000 ML IV SCH (08:00)
[2022-05-09] MEDS: PANTOPRAZOLE 40 MG VIAL IV SCH (08:28)
[2022-05-09] MEDS ORDERED: LIDOCAINE 2% 5 ML VIAL ONE (09:38)
[2022-05-09] MEDS ORDERED: propofoL 200 MG/20 ML VIAL IV ONE (09:38)
[2022-05-09] MEDS: INDAPAMIDE 2.5 MG TABLET PO SCH (10:48)
[2022-05-09] MEDS: METOPROLOL SUCCINATE XL 25 MG TABLET PO SCH (10:48)
[2022-05-09] MEDS ORDERED: POTASSIUM CHLORIDE 20 MEQ TABLET PO ONE (11:23)
[2022-05-09] MEDS ORDERED: LIPASE/PROTEASE/AMYLASE 4,200 UNITS CAPSULE PO SCH (12:00)
[2022-05-09 12:38] VITALS: BP 169/73
== END 2022-05-09 15:05 | disposition home or self-care (01) ==
LOC: N.EDINP 17:02 → N.ED 17:02 → SUATTDRO 18:18 → N.2E 20:21
PROVIDERS: ADMIT Family Medicine; ATTEND Internal Medicine